=== PATIENT | female | born 1955 | race Caucasian/White ===

== ENCOUNTER 2019-11-06 17:40 | Inpatient (IN) | payer MEDICARE, OTHER ==
[~2019-11-06] VITALS: Ht 165.1 cm; Wt 73.1 kg
[2019-11-06 18:01] VITALS: BP 136/65
[2019-11-06] MEDS ORDERED: MOBIC7.5 MG PO (18:11)
[2019-11-06] MEDS ORDERED: ALLEGRA ALLERGY60 MG PO (18:11)
[2019-11-06] MEDS ORDERED: AZITHROMYCIN500 MG (18:12)
[2019-11-06] MEDS ORDERED: PRILOSEC10 MG PO (18:12)
[2019-11-06] MEDS ORDERED: SINGULAIR4 MG PO (18:12)
--- NOTE | 2019-11-06 18:12 | NUR ---
PT REPORTS BEING ON "Z PACK" FOR SINUS INFECTION TREATMENT.
[2019-11-06 19:18] LABS: ABSOLUTE EOSINOPHILS 0.1 thou/uL (0.0-0.7); ABSOLUTE LYMPHOCYTES 1.5 thou/uL (0.8-5.3); ABSOLUTE MONOCYTES 0.7 thou/uL (0.0-1.2); ABSOLUTE NEUTROPHILS 1.9 thou/uL (1.6-8.1); BASOPHILS 0.6 %; HEMATOCRIT 37.3 % (37.0-47.0); HEMOGLOBIN 12.3 gm/dL (12.0-15.0); LYMPHOCYTES 35.9 %; MCH 28.9 pg (26.0-34.0); MCHC 32.9 g/dL (28.0-37.0); MCV 87.7 fL (80.0-100.0); MONOCYTES 15.9 %; MPV 8.5 fl. (7.2-11.1); NUCLEATED RBCS 0 /100WBC; PLATELET COUNT* 243 thou/uL (150-400); POLYS 45.6 %; RBC 4.26 mil/uL (4.20-5.00); RDW-CV 13.7 % (10.5-14.5); WBC 4.2 thou/uL (4.0-11.0)
[2019-11-06 19:23] LABS: CALCIUM 9.4 mg/dL (8.5-10.1); CREATININE 0.8 mg/dL (0.6-1.3); POTASSIUM 3.5 mmol/L (3.5-5.1)
[2019-11-06 19:27] LABS: ALBUMIN 3.6 g/dL (3.4-5.0); APTT 25.7 Seconds (25.0-31.3); PROTIME 10.7 Seconds (9.20-11.50); TOTAL BILIRUBIN 0.3 mg/dL (<0.1-1.0); TOTAL PROTEIN 7.6 g/dL (6.4-8.2)
[2019-11-06 21:31] VITALS: BP 151/79
[2019-11-06 22:00] VITALS: BP 131/79
[2019-11-07] VITALS: BP 95/45
[2019-11-07 04:00] VITALS: BP 118/62
--- NOTE | 2019-11-07 07:48 | NUR ---
RECEIVED REPORT FROM ED RN. PT TRANSFERRED TO 210. PT A&OX4. VSS. ADMISSION HISTORY AND PHYSICAL ASSESSMENT COMPLETED AND CHARTED. ORIENTED TO ROOM & CALL LIGHT. PT ON RA. PT TRACING SR/PVC ON TELE. PT UPADLIB TO RESTROOM. PT DENIES ANY CHEST PAIN. PT ABLE TO SLEEP WELL ON BED. CALL LIGHT WITHIN REACH.
[2019-11-07 08:16] VITALS: BP 134/77
--- NOTE | 2019-11-07 08:25 | NUR ---
ASSUMED CARE AFTER REPORT APPROX 0730. A&OX4, ABLE TO COMMUNICATE NEEDS TO STAFF. ASSESSMENT COMPLETE, VS OBTAINED, WNL. SPECIAL POLICE OFFICER IN PLACE, SR. PATIENT WITHOUT C/O PAIN, SOA, NAUSEA OR OTHER DISTRESS. UP AD ELISHA IN ROOM. CALL LIGHT AVAILABLE. HOURLY ROUNDING FOR SAFETY/NEEDS.
[2019-11-07 11:19] LABS: CHOLESTEROL 145 mg/dL (<200); HDL CHOLESTEROL 38 mg/dL (>40); LDL CHOLESTEROL 90 mg/dL (<100); TC:HDL 3.8 Ratio (Not establshd); TRIGLYCERIDE 89 mg/dL (<150); VLDL 18 mg/dL (<40)
[2019-11-07 11:20] LABS: SERUM ASSESSMENT Clear
--- NOTE | 2019-11-07 12:58 | EKG ---
[place] [address] ELECTROCARDIOGRAM REPORT Name: JF RIVERS Room: [address] ADM IN M.R.#: [id number] Admission: 11/07/19 Attend Phys: Dick Still Discharge: Date of : 51 Report #: [id number] THIS REPORT FOR: //name// [facility] ED Test Date: 2019-11-06 Test Time: 18:54:53 Pat Name: JF RIVERS Department: Room: [facility] Gender: F School Transportation Supervisor: PALOMA : 1955 Requested By: Rizwana Gant Order Number: [id number] MD: Frank Robledo Measurements Intervals [place] Rate: 65 P: 32 WA: 147 QRS: 23 QRSD: 90 T: 49 QT: 415 QTc: 432 Interpretive Statements Sinus rhythm No previous ECG available for comparison Electronically Signed On 11-07-2019 12:57:42 NEUROPSYCHOLOGY SERVICE DIRECTOR by Frank Robledo [email or web address] <ELECTRONICALLY SIGNED> By: Hoda Robledo MD, [facility] 11/07/19 1257 [id number] Hoda Robledo MD, FACC /EPI
[2019-11-07 14:00] VITALS: BP 134/75
[2019-11-07 20:00] VITALS: BP 128/70
--- NOTE | 2019-11-07 22:00 | NUR ---
PT C/O CONSTANT PROCTOR 5/10 NAGGING, LIGHT AND SOUND INCREASING PAIN, REST MINIMAL HELPFUL FOR PAIN MANAGEMENT, PT REQUESTING TYLENOL 1000MG PO TAKEN AT HOME PRN FOR PAIN RELEIF, PAGED DR GATICA WEB PRODUCER FOR DR HEARN, NEW ORDERS RECEIVED FOR TYLENOL 1000MG PO Q6PRN FOR PAIN OR FEVER, NEW ORDER ENTERED IN [employer], WILL COMMUNICATE NEW ORDER WITH PT AND ADMINISTER NEEDED.
[2019-11-08] VITALS: BP 127/70
[2019-11-08 04:00] VITALS: BP 155/88
--- NOTE | 2019-11-08 07:00 | NUR ---
RESTING QUIELTY WITH EYES CLOSED OFF AND ON DURING NOC, C/O CONSTANT HEADACHE, TYLENOL 1000MG PO GIVEN X1 PER REQUEST AND C/O HEADACHE WITH SHORT TERM EFFECTIVE RESULTS, C/0 "FEELING CONGESTED, IF I COULD THROW UP ID FEEL BETTER" APROX 50CC CLEAR EMESIS X2, ZOFRAN 4MG IVP GIVEN X1 WITH EFFECTIVE RESULTS PER PT VERBALIZATION, REFUSING NITOPASTE THIS AM DUE TO ONGOING HEADACHE, DENIES CP OR DISCOMFORT ALL SHIFT, NSR TRACING MOBILE PAINT SPECIALIST HR 80'S, RA, DENIES SOA OR DIFFICULTY BREATHING, USING CALL LIGHT ADEQUATELY, SAFETY MAINTAINED.
[2019-11-08 08:30] VITALS: BP 148/80
--- NOTE | 2019-11-08 10:00 | NUR ---
ASSUMED CARE AFTER REPORT APPROX 0730. C/O HEADACHE, NAUSEA, AND STATES "I HAD DRY HEAVES ALL NIGHT." ASSESSMENT COMPLETE, VS OBTAINED. PULVERIZER IN PLACE, SR. PRN TYLENOL GIVEN WITH AM MEDS. C/O FULLNESS IN THROAT THAT SHE HAS BEEN FEELING SINCE PRIOR TO ADMISSION. PATIENT STATES "USUALLY FLONASE HELPS THIS STOP." ASKED PHYSICIAN FOR ORDER FOR FLONASE. PRN ZOFRAN GIVEN FOR NAUSEA. THERAPEUTIC COMMUNICATION: PRESENCE. CALL LIGHT IN REACH. HOURLY ROUNDING FOR SAFETY/NEEDS.
[2019-11-08 11:59] VITALS: BP 116/56
--- NOTE | 2019-11-08 15:54 | NUR ---
PATIENT CONTINUED TO C/O HEADACHE EARLY AFTERNOON. TRIED CAFFEINATED COFFEE AFTER A SHOWER. REASSESSMENT REVEALS THAT PATIENT'S HEADACHE ALMOST GONE PER HER REPORT. ALSO STATES PANTOPRAZOLE EASED HER ABDOMINAL DISCOMFORT. PATIENT REPORTED TO THIS NURSE THAT SHE EXPERIENCED DRY HEAVES OVERNIGHT. APPROX 100 MLS CLEAR LIQUID EMESIS IN BASIN AT FIRST ENCOUNTER TODAY. PATIENT STATES SHE HAD BEEN UNABLE TO EAT BREAKFAST OR LUNCH.
[2019-11-08 16:03] VITALS: BP 107/57
[2019-11-08 20:00] VITALS: BP 131/46
[2019-11-09] VITALS: BP 108/41
[2019-11-09 04:00] VITALS: BP 115/63
[2019-11-09 08:00] VITALS: BP 127/62
[2019-11-09 11:59] VITALS: BP 101/49
--- NOTE | 2019-11-09 13:58 | EKG ---
[place] [address] ELECTROCARDIOGRAM REPORT Name: FJ RIVERS Room: [address] ADM IN M.R.#: [id number] Admission: 11/07/19 Attend Phys: Dick Still Discharge: Date of : 51 Report #: [id number] THIS REPORT FOR: //name// [facility] Test Date: 2019-11-07 Test Time: 13:32:19 Pat Name: JF RIVERS Department: Room: [address] Gender: F Orchestra Director: 1887 : 1955 Requested By: Hoda Robledo Order Number: [id number] Santhosh MD: Bay Hernández Measurements Intervals [place] Rate: 75 P: -63 PA: 151 QRS: 17 QRSD: 101 T: 28 QT: 394 QTc: 441 Interpretive Statements Sinus or ectopic atrial rhythm septal q waves noted Borderline low voltage, extremity leads Compared to ECG 11/06/2019 18:54:53 Ectopic atrial rhythm now present Electronically Signed On 11-09-2019 13:57:39 TICKER MAINTAINER by Bay Hernández [email or web address] <ELECTRONICALLY SIGNED> By: Bay Hernández MD, [facility] 11/09/19 0345 1332 1332 Bay Hernández MD, [facility] /EPI
--- NOTE | 2019-11-09 14:56 | NUR ---
Pt is A&O. Resides at home with her . Normally active and independent. No DME. No hx of HH or SNF. Pt had cath today. Goal is home.
[2019-11-09] MEDS ORDERED: NITROSTAT0.4 M1 SUBLING (15:00)
--- NOTE | 2019-11-09 15:34 | CARD ---
[address] [address] CARDIAC CATH REPORT Name: JF RIVERS Room: 210-P ADM IN M.R.#: [id number] Admission: 11/07/19 Attend Phys: Dick Still Discharge: Date of : 51 Report #: [id number] THIS REPORT FOR: //name// APPROVED REPORT Study performed: 11/09/2019 08:59:14 Patient Details Patient Status: In-Patient Room #: 210 The patient is a 64 year-old female Event Personnel Jas Srinivasan RTR Monitor, Gabriela Chan RTR Betty Cash David Technology Recruiter, Juan Haddad marine oiler Performed Left Heart Catheterization Indication Chest pain Risk Factors Family History Admission/Lab Medications/Medications given during procedure Heparin Unfract. Procedure Narrative The patient was brought electively to the Cardiac Catheterization Laboratory and was prepped and draped in a sterile manner. The right wrist was infiltrated with 2% Lidocaine subcutaneous anesthesia. A 6Fr Slender Sheath sheath was inserted into the right radial artery. Coronary angiography was performed using coronary diagnostic catheters. The right coronary system was accessed and visualized with a Diagnostic JR4 6Fr catheter. The left coronary system was accessed and visualized with a Diagnostic JL4 6Fr catheter. The left ventricle was accessed and visualized with a Diagnostic Pigtail 6Fr catheter. Left ventricular/Aortic Valve gradient assessed via catheter pullback. Left ventriculogram was performed in ZARATE projection. Closure device was deployed with a 6 Fr vascband. The patient tolerated the procedure well and there were no complications associated with the procedure. There was no hematoma. Intraoperative Conscious Sedation Sedation start time: 942 Case end Time: [place] [address] CARDIAC CATH REPORT Name: JF RIVERS Room: [address] IN [facility]#: [id number] Admission: 11/07/19 Attend Phys: Dick Still Discharge: Date of : 51 Report #: [id number] Fentanyl 25.0 mcg Versed 2.0 mg Fluoro Time: 3.3 minutes Dose: DAP 96968 cGycm2 548.28 mGy Contrast Type and Amount: 140 Coronary Angiography The patient's coronary anatomy is right dominant. Diagnostic Cath Left Main 0% stenosis Circumflex 0% stenosis Right Coronary 30% proximal stenosis Left Ventriculography The left ventricular ejection fraction is estimated to be 55-60%. Left ventricular wall motion abnormalities are not present. There is no mitral insufficiency. Hemodynamics The right atrial mean pressure is 124/61 mmHg. The left ventricular pressure is 126/10 mmHg with a mean of mmHg. The left ventricular end diastolic pressure is 12 mmHg. There was no gradient across the aortic valve upon pullback. Pullback from the left ventricle to the aorta revealed no gradient across the aortic valve. Conclusion 1. no significant CAD 2. suspect noncardiac chest pain 3. LVEF 55-60% Recommendations Aggressive Medical Therapy <ELECTRONICALLY SIGNED> By: Bay Hernández MD, FACC 11/09/19 1534 1534 1534Dsonali Hrenández MD, FACC /INF
--- NOTE | 2019-11-09 16:26 | CON ---
[address] [address] CONSULTATION Name: JF RIVERS Room: [address] ADM IN M.R.#: [id number] Admission: 11/07/19 Attend Phys: Dick Still Discharge: Date of : 51 Report #: [id number] THIS REPORT FOR: //name// CC: FAM unknown Andrew Ley DATE OF SERVICE: 11/07/2019 CARDIOLOGY CONSULTATION HISTORY OF PRESENT ILLNESS: I was asked by Dr. Ley to see this 64-year-old white female in cardiology consultation for evaluation and treatment of chest pain. This lady came in last night with chest pain. The pain was substernal. She describes this as a 10 on a scale of 10. It lasted 45 minutes. It resolved when she got nitroglycerin from her . She describes the discomfort as a squeezing discomfort. She in fact exhibited a double Gibbs's sign when she described it. The pain radiated into her right jaw and into her back. It resolved after the nitroglycerin. It did occur at rest. She was standing up and working with something very light with her hands when it began. It was associated with shortness of breath, but not nausea or vomiting. There was no diaphoresis. It did not improve with rest. The only radiation was into the jaw. The pain did radiate into her right jaw, but it also radiated into the left side of her back. She does not chronically have issues with dyspnea on exertion, shortness of breath at rest, orthopnea or PND, but occasionally she gets a little leg swelling. She says she has venous disease in her legs and wears compression socks. She nearly passed out with the pain. She became quite lightheaded and weak but she has not had near syncope, otherwise. She has never had complete syncope. Coronary risk factors are remarkable for family history of coronary disease. Her father had a pacemaker and high blood pressure and a heart attack and of a heart attack. Her one brother that she knows of has coronary stents and she thinks her other brother also has coronary stents. There is no family history of sudden . She does not smoke. She does not have high cholesterol. She does not have diabetes. She does not have high blood pressure. She does not have kidney disease or peripheral vascular disease. She has never had carotid vascular disease. She has never had a stroke or TIA. She does not have claudication or open or nonhealing wounds. She has no prior cardiac history. She has had a tonsillectomy and adenoidectomy as well as a hysterectomy and hydatid cyst repair. She has had hernia repair. ALLERGIES: SHE IS ALLERGIC TO TETANUS VACCINE. HOME MEDICATIONS: Include azithromycin that she is taking 500 mg daily at this point. She has Justa 30 mg daily, meloxicam 10 mg daily, montelukast 4 mg daily and Prilosec [place] [address] CONSULTATION Name: JF RIVERS Room: [address] IN M.R.#: [id number] Admission: 11/07/19 Attend Phys: Dick Still Discharge: Date of : 51 Report #: [id number] REVIEW OF SYSTEMS: Positive for cough, sputum production, chest discomfort, nearly passing out, anemia, blood clot in a vein, seasonal allergy, medical allergy, tetanus allergy, wearing glasses and decreased hearing. Otherwise, review of systems is negative for some 40 different complaints in 14 different system categories including central nervous system, general, respiratory, cardiovascular, endocrine, gastrointestinal, genitourinary, hematologic, lymphatic, allergic, immunologic, psychiatric, musculoskeletal, skin, eyes, ears, nose, nose, mouth, and throat. Please see review of system for details and negatives in review of systems. PHYSICAL EXAMINATION: GENERAL: She presents as a well-developed, well-nourished white female, in no acute distress. VITAL SIGNS: Pulse was 73 and regular, blood pressure is 118/62, respirations are 18 and regular, and temperature is 98.3. HEENT: Head was atraumatic. Eyes were clear. NECK: Supple. There is no jugular venous distention or hepatojugular reflux. Thyroid is not enlarged. There is no adenopathy. SKIN: Warm and dry. Mucous membranes are moist. LUNGS: Clear to auscultation and percussion. HEART: Revealed normal first and second heart sounds. There is soft S4. There is no S3. There are no murmurs, rubs, thrills, heaves or gallops. PMI is nondisplaced. ABDOMEN: Soft, flat and nontender. No palpable masses, no organomegaly. EXTREMITIES: Reveal no cyanosis, clubbing or edema. NEUROLOGIC: The patient mentated normally, talked normally, moved all extremities normally. LABORATORY DATA: Her EKG reveals normal sinus rhythm and is a normal EKG. Troponins are negative x 3. Her lipids in fact were normal as well. IMPRESSION: 1. Chest pain is highly suspicious for coronary pain. 2. Family history of coronary artery disease. RECOMMENDATION: I think this lady should have cardiac catheterization and coronary angiography. She has agreed to that and she will have that on Saturday. Thank you very much for asking me to see the patient. If there are any questions, please feel free to contact me. <ELECTRONICALLY SIGNED> By: Bay Hernández MD, FACC 11/09/19 1626 1200 [id number]. Frank Robledo MD, FACC /nt
[2019-11-09 16:38] VITALS: BP 101/49
== END 2019-11-09 17:15 | disposition home or self-care (01) | DRG 392 ==
LOC: M.ERS 17:40 → M.TBA-ER 20:34 → M.2W 20:34
PROVIDERS: Internal Medicine; Personal Emergency Response Attendant; ADMIT Internal Medicine
PROC: B2111ZZ Fluoroscopy of Multiple Coronary Arteries using Low Osmolar Contrast (ICD-10-PCS; principal; 2019-11-09)
PROC: B2151ZZ Fluoroscopy of Left Heart using Low Osmolar Contrast (ICD-10-PCS; principal; 2019-11-09)
PROC: 4A023N7 Measurement of Cardiac Sampling and Pressure, Left Heart, Percutaneous Approach (ICD-10-PCS; 2019-11-09)
DX: K21.0 Gastro-esophageal reflux disease with esophagitis (principal); K44.9 Diaphragmatic hernia without obstruction or gangrene; R55 Syncope and collapse; J32.9 Chronic sinusitis, unspecified; E66.9 Obesity, unspecified; Z68.26 Body mass index [BMI] 26.0-26.9, adult; Z79.899 Other long term (current) drug therapy; Z88.7 Allergy status to serum and vaccine; Z90.710 Acquired absence of both cervix and uterus; Z86.711 Personal history of pulmonary embolism; Z79.01 Long term (current) use of anticoagulants; Z82.49 Family history of ischemic heart disease and other diseases of the circulatory system